=== PATIENT | female | born 1930 | race Caucasian/White ===

== ENCOUNTER → 2017-04-09 | Outpatient (CLI) | payer MEDICARE, OTHER ==
[~2017-04-09] MED LIST: ASPI-716 PO; ATOR80TA75 PO; DIGO250T PO; FURO20TA3 PO; MAXZ25 PO; METO25TA7 PO; OXYB10TA6 PO
--- NOTE | 2017-04-09 10:41 | RADRPT ---
PROCEDURE: XR left knee. CLINICAL INDICATION: Knee pain. TECHNIQUE: AP weightbearing, lateral weightbearing and sunrise views are available for review. COMPARISON: 05/06/2014 FINDINGS: There is a total knee replacement. There is no evidence of loosening of the prosthesis. There is no evidence of hardware failure. The osseous structures are normal in mineralization, architecture and alignment No acute fracture or dislocation is seen.No osseous lesions are identified. The soft tiss ues are unremarkable . IMPRESSION: Unremarkable total knee replacement. RPTAT: [facility] .Gilmar Gillespie MD, MD Date Time Electronically viewed and signed by .Gilmar Gillespie MD, MD on 04/09/2017 10:41 .B/
--- NOTE | 2017-04-09 10:43 | RADRPT ---
PROCEDURE: XR pelvis / bilateral hips. CLINICAL INDICATION: Hip pain TECHNIQUE: AP pelvis/AP and lateral right and left hip views performed. COMPARISON: No prior studies are available for comparison. FINDINGS: There is a right total hip replacement. There is no evidence of loosening of the prosthesis. No hard patel failure is identified. There is moderate left hip osteoarthrosis. This is associated with joint space narrowing, subchondra l sclerosis and osteophytosis. There is normal osseous mineralization. No fractures or osseous les ions are identified. The soft tissues are unremarkable. There is a spinal stimulator in the right l ower quadrant. IMPRESSION: Right total hip replacement. Moderate left hip osteoarthrosis. RPTAT: [facility] .Gilmar Gillespie MD, MD Date Time Electronically viewed and signed by .Gilmar Gillespie MD, on 04/09/2017 10:43 .B/
== END | disposition home or self-care (01) ==
LOC: HKI 09:11
PROVIDERS: ATTEND Orthopaedic Surgery
DX: M25.552 Pain in left hip (principal); Z96.641 Presence of right artificial hip joint; Z96.653 Presence of artificial knee joint, bilateral
CPT/HCPCS: 73523; 73562; G0463